=== PATIENT | female | born 2000 | race Caucasian/White ===

== ENCOUNTER 2022-07-27 08:03 | Emergency (ER) | payer BC, SELFPAY ==
[2022-07-27] MEDS ORDERED: Ketorolac Tromethamine 30 MG/ML VIAL ONE (08:37)
[2022-07-27] MEDS ORDERED: Dexamethasone 10 MG/ML VIAL ONE (08:37)
[2022-07-27 09:39] LABS: Bilirubin Negative (Negative); Blood, Urine Negative (Negative); Clarity Hazy (Clear); Glucose, Urine (Dipstick) Normal (Negative); Ketone, Urine Trace mg/dL (Negative); Leukocyte 25 Leu/uL (Negative); Nitrite Negative (Negative); Protein, Urine (Dipstick) 50 mg/dL (Neg-Trace); RBC/HPF 0-3 HPF (0-3); Specific Gravity, Urine 1.042 (1.002-1.036)
[2022-07-27 09:40] LABS: Bacteria/HPF Rare-Few HPF (None Seen)
[2022-07-27 09:41] LABS: Pregnancy Test - Urine (BHCG) Negative (Negative); Pregu Control Background? CLEAR/WHITE (CLR/WHITE); Pregu Control Bar Appear? YES (CONTROL BAR); Specific Gravity 1.042 (1.002-1.036)
== END 2022-07-27 10:05 | disposition home or self-care (01) ==
LOC: ERS 08:03
DX: M54.50 Low back pain, unspecified (principal); F17.290 Nicotine dependence, other tobacco product, uncomplicated
CPT/HCPCS: 81003; 81015; 81025; 96372; 99283; J1100; J1885

== ENCOUNTER 2022-08-13 21:38 | Emergency (ER) | payer BC | END 2022-08-13 23:10 | disposition home or self-care (01) | LOC: ERS 21:38 | DX: S93.402A Sprain of unspecified ligament of left ankle, initial encounter (principal); F17.220 Nicotine dependence, chewing tobacco, uncomplicated; W10.9XXA Fall (on) (from) unspecified stairs and steps, initial encounter ==